=== PATIENT | female | born 1980 ===

== ENCOUNTER 2018-03-20 09:13 | Day surgery (SDC) | payer OTHER ==
[2018-03-06 08:35] VITALS: BMI 24.2
[2018-03-20] MEDS ORDERED: Lidocaine/Epinephrine 1% 1:100000 10 ML IJ ONE (12:47)
[2018-03-20] MEDS ORDERED: Bupivacaine 0.25% 20 ML INJ IJ ONE (12:47)
[2018-03-20] MEDS ORDERED: ceFAZolin 1 gm in NS 2 GM/200 ML BAG IVPB ONE (12:48)
[2018-03-20] MEDS ORDERED: Midazolam 2 MG/2 ML VIAL ONE (13:27)
[2018-03-20] MEDS ORDERED: Propofol 10 mg/ml Inj (20 ML) ONE (13:28)
[2018-03-20] MEDS ORDERED: Bupivacaine Liposomal Inj 20 ml INFIL ONE (14:30)
[2018-03-20] MEDS ORDERED: Sodium Chloride 0.9% 20 ML IV ONE (14:37)
[2018-03-20] MEDS ORDERED: Oxycodone/Acetaminophen 5/325 mg Tab PO PRN (15:05)
--- NOTE | 2018-03-20 15:08 | PCM.SURG1 ---
Surgeon's Initial Post Op Note - Surgeon's Notes Surgeon: Dr. Smith Facility Planner: Dr. Millard Type of Anesthesia: General Endo Pre-Operative Diagnosis: Cholecystitis Operative Findings: see operative dictation Post-Operative Diagnosis: same Operation Performed: robot assisted laparoscopic cholecystectomy Specimen/Specimens Removed: gallbladder Estimated Blood Loss: EBL {In ML}: 10 Blood Products Given: N/A Drains Used: No Drains Post-Op Condition: Good Date of Surgery/Procedure: 03/20/18 Time of Surgery/Procedure: 15:07
[2018-03-20] MEDS ORDERED: HYDROmorphone 0.5 mg/0.5 ml ISec IVP PRN (15:14)
[2018-03-20 15:29] VITALS: O2SAT 100
[2018-03-20 17:22] VITALS: BP 116/70; PULSE 65; RESP 18; TEMP 96.9
--- NOTE | 2018-03-21 01:18 | OP ---
PROCEDURE DATE: 03/20/2018 PREOPERATIVE DIAGNOSIS: Chronic cholecystitis and cholelithiasis. POSTOPERATIVE DIAGNOSIS: Chronic cholecystitis and cholelithiasis. PROCEDURE DONE: Robotic cholecystectomy. SURGEON: Alek Smith MD ASSISTANTS: SIA Lugo and Dima Millard D.O., PGY-1, resident. ANESTHESIA: General endotracheal tube anesthesia. ESTIMATED BLOOD LOSS: Around 10 mL. DRAINS: None. PATHOLOGY: The gallbladder with gallstone was sent to the pathology. COMPLICATIONS: None. INTRAOPERATIVE FINDINGS: The patient had changes of chronic cholecystitis and cholelithiasis. DESCRIPTION OF PROCEDURE: On intraoperative steps, this is a 37-year-old female who was diagnosed with chronic cholecystitis and cholelithiasis, and the patient was consented for the robotic cholecystectomy, possible open, brought to the OR, and placed supine on the operating table. After induction of the anesthesia, the abdomen was prepped and draped in the usual sterile fashion. A supraumbilical transverse incision was made using the open technique. Robotic camera port was placed, and Pneumo was created. Another 3.8 mm port was placed in the upper abdomen. Robot was brought in. Camera arm as well as arm 1 and arm 2 was docked, and gallbladder appeared to be elevated due to extensive anterior surface of the liver adhesion to the anterior abdominal wall and adhesion left undisturbed, and the Calot's triangle was dissected. Cystic duct and cystic artery were identified. The top-down approach was done. Critical view of the safety was also identified. The cystic duct and common bile duct junction was identified using ICG, and the cystic duct and cystic artery were clipped at three places and cut in between two clips nearby the gallbladder, and gallbladder was dissected free from the gallbladder fossa, taken in EndoCatch bag, taken out through the umbilical port site, and sent off the table for the pathology. There was a proper hemostasis in each and every part of the procedure. All the instruments were taken out. Robot was undocked. All the ports were closed in two layer; the fascia with 0-Vicryl interrupted suture, skin with 4-0 Monocryl, and dry sterile dressing was applied. The patient was extubated in OR, sent to the postanesthesia care unit in stable condition. Alek Smith MD
== END 2018-03-20 18:43 | disposition home or self-care (01) ==
LOC: C.SDS 09:13
PROVIDERS: ATTEND Surgery Surgical Critical Care
DX: K80.10 Calculus of gallbladder with chronic cholecystitis without obstruction (principal); E78.5 Hyperlipidemia, unspecified
CPT/HCPCS: 47562; 88304; J0690; J2250; J2704; J2765; J3010